=== PATIENT | female | born 1940 | race Caucasian/White ===

== ENCOUNTER → 2018-06-06 | Outpatient (CLI) | payer MEDICARE ==
--- NOTE | 2018-06-07 09:40 | RADIOLOGY REPORT (SQ) ---
EXAM DESCRIPTION: MRI LUMBAR SPINE WITHOUT COMPLETED DATE/TIME: 06/06/2018 4:34 pm REASON FOR STUDY: BACK PAIN, LUMBAGO, SPINAL STENOSIS M54.5 LOW BACK PAIN M48.00 SPINAL STENOSIS, SITE UNSPECIFIED M46.1 SACROILIITIS, NOT ELSEWHERE CLASSIFIED COMPARISON: None. TECHNIQUE: Sagittal and Axial imaging includes T1, T2, STIR and gradient echo sequences. Coronal T2/ HASTE imaging. LIMITATIONS: Motion. FINDINGS: VISUALIZED UPPER ABDOMEN: Limited evaluation. No acute or suspicious findings suggested. SEGMENTATION: No transitional anatomy. The lowest well-developed disc space is labeled L5-S1. ALIGNMENT: Moderate convex right scoliosis. Grade 1 anterolisthesis L2 relative to L 1, L4 relative to L5. VERTEBRAE: Intact. BONE MARROW: Normal. No marrow replacement or reactive changes. DISC SIGNAL: Desiccation multiple levels. POSTERIOR ELEMENTS: Generally intact. No pars defect evident. HARDWARE: None in the spine. CORD AND CONUS: Normal in size and signal intensity. Conus at the appropriate level. SOFT TISSUES: No aortic aneurysm seen. No bulky retroperitoneal adenopathy or mass. No paraspinal mas s or fluid. L1-L2: Severe spinal stenosis due to disc osteophyte complex and facet arthropathy. Moderate neural foraminal narrowing bilaterally. L2-L3: Severe spinal stenosis. Moderate right and severe left neural foraminal narrowing. L3-L4: Severe spinal stenosis. Mild neural foraminal narrowing bilaterally. L4-L5: Severe spinal stenosis. Moderate neural foraminal narrowing bilaterally. L5-S1: Mild spinal stenosis. Moderate neural foraminal narrowing bilaterally. SACRUM: Visualized upper sacrum intact. OTHER: No other significant findings. IMPRESSION: Spondylosis, facet arthropathy and malalignment. Severe spinal stenosis at multiple lev els. TECHNICAL DOCUMENTATION: JOB ID: [id number] [employer]- All Rights Reserved Reading location - IP/workstation name: [email or web address]
== END ==
LOC: RAD 13:40
PROVIDERS: ATTEND Family Medicine
DX: M48.061 Spinal stenosis, lumbar region without neurogenic claudication (principal); M54.5 Low back pain; M46.1 Sacroiliitis, not elsewhere classified
CPT/HCPCS: 72148

== ENCOUNTER 2019-01-21 11:52 | Emergency (ER) | payer MEDICARE ==
[2019-01-21] MEDS ORDERED: HYDROXYZINE PAMOATE 25 MG CAPSULE PO ONE (12:50)
[2019-01-21] MEDS ORDERED: PREDNISONE 20 MG TABLET PO ONE (12:54)
--- NOTE | 2019-01-21 12:54 | ER Document Report ---
HPI - HPI Patient complains to provider of: Itching Time Seen by Provider: 01/21/19 12:25 Onset: Other - 3 days Onset/Duration: Persistent, Waxing and waning Pain Level: 0 Context: Patient complains of generalized pruritus for the past 3 days. Patient denies any skin rash. Patient states she did receive a steroid shot in her right arm 4 days ago and is uncertain if her symptoms are attributed to this. Patient denies any immediate reaction to the steroid injection and did not develop the pruritus until the day following. She denies any other new foods medications or detergents. Patient denies any difficulty breathing or swallowing. Patient denies any skin rash. Associated Symptoms: denies: Chest pain, Headache Exacerbated by: Denies Relieved by: Denies Similar symptoms previously: No Recently seen / treated by doctor: Yes - ROS ROS below otherwise negative: Yes Systems Reviewed and Negative: Yes All other systems reviewed and negative - CONSTITUTIONAL Constitutional: DENIES: Fever - EENT EENT: DENIES: Sore Throat, Congestion - NEURO Neurology: DENIES: Headache - CARDIOVASCULAR Cardiovascular: DENIES: Chest pain - RESPIRATORY Respiratory: DENIES: Trouble Breathing, Coughing - GASTROINTESTINAL Gastrointestinal: DENIES: Nausea, Patient vomiting - DERM Skin Color: Normal Notes: Pruritus Past Medical History - General Information source: Patient - Social History Smoking Status: Never Smoker Chew tobacco use (# tins/day): No Frequency of alcohol use: None Drug Abuse: None Lives with: Spouse/Significant other Family History: Reviewed & Not Pertinent Patient has suicidal ideation: No Patient has homicidal ideation: No - Past Medical History Cardiac Medical History: Reports: Hx Hypercholesterolemia, Hx Hypertension - MEDICATED Denies: Hx Heart Attack Pulmonary Medical History: Denies: Hx Asthma Neurological Medical History: Denies: Hx Cerebrovascular Accident, Hx Seizures Endocrine Medical History: Reports: Hx Diabetes Mellitus Type 2 Renal/ Medical History: Denies: Hx Peritoneal Dialysis GI Medical History: Denies: Hx Hepatitis, Hx Hiatal Hernia, Hx Ulcer Infectious Medical History: Denies: Hx Hepatitis Past Surgical History: Reports: Hx Appendectomy, Hx Breast Surgery - biopsy, Hx Hysterectomy, Hx Tubal Ligation - Immunizations Hx Diphtheria, Pertussis, Tetanus Vaccination: Yes Vertical Provider Document - CONSTITUTIONAL Agree With Documented VS: Yes Exam Limitations: No Limitations General Appearance: WD/WN, No Apparent Distress - INFECTION CONTROL TRAVEL OUTSIDE OF THE [place] IN LAST 30 DAYS: No - HEENT HEENT: Atraumatic, Normal ENT Exam, Normocephalic Notes: No angioedema, no potential airway compromise - NECK Neck: Normal Inspection, Supple. negative: Lymphadenopathy-Left, Lymphadenopathy-Right - RESPIRATORY Respiratory: Breath Sounds Normal, No Respiratory Distress - CARDIOVASCULAR Cardiovascular: Regular Rate, Regular Rhythm - BACK Back: Normal Inspection - MUSCULOSKELETAL/EXTREMETIES Musculoskeletal/Extremeties: MAEW, FROM - NEURO Level of Consciousness: Awake, Alert, Appropriate Motor/Sensory: No Motor Deficit - DERM Integumentary: Warm, Dry, Rash - Patient with erythematous maculopapular rash around right breast, patient with mild erythematous skin lesions to right upper thigh area. Patient with erythematous macular lesions to lower lumbar area that are in the distribution pattern consistent with a contact dermatitis (pt reports hx applying topical patches to this area) Course - Re-evaluation Re-evalutation: 01/21/19 Patient does have scattered maculopapular rash to right breast area and right leg. Patient with a skin rash to lower back area worrisome for a contact dermatitis likely attributed to recent application of topical lidocaine patches. Patient without any findings worrisome for angioedema or anaphylaxis. Good return precautions discussed. - Vital Signs Vital signs: Temp Pulse Resp BP Pulse Ox 98.7 F 63 16 163/61 H 97 01/21/19 12:07 01/21/19 12:07 01/21/19 12:07 01/21/19 12:07 01/21/19 12:07 Discharge - Discharge Clinical Impression: Pruritus, Skin rash Condition: Stable Disposition: HOME, SELF-CARE Instructions: Antihistamines ([facility]), Steroid Medication Additional Instructions: Return immediately for any new or worsening symptoms Followup with your primary care provider, call tomorrow to make a followup appointment Use skin moisturizers at least twice a day Prescriptions: Hydroxyzine HCl [Atarax 25 mg Tablet] 1 tab PO QID PRN #12 tablet PRN Reason: Prednisone [Deltasone 20 mg Tablet] 2 tab PO DAILY 4 Days tablet Referrals: MARIBEL WILSON MD [Primary Care Provider] - 01/24/19
[2019-01-21 13:21] VITALS: BP 156/65
== END 2019-01-21 13:21 | disposition home or self-care (01) ==
LOC: ER 11:52
DX: L29.9 Pruritus, unspecified (principal); R21 Rash and other nonspecific skin eruption; I10 Essential (primary) hypertension; Z79.899 Other long term (current) drug therapy; E11.9 Type 2 diabetes mellitus without complications
CPT/HCPCS: 99283; A9270 ×2; J7512